=== PATIENT | female | born 1955 | race Caucasian/White ===

== ENCOUNTER 2019-07-06 15:33 | Inpatient (IN) | payer OTHER, SELFPAY ==
--- NOTE | ~2019-07-06 | XR_ITS ---
EXAMINATION: XR foot LT 2V DATE: 07/07/2019 15:31 INDICATION: Wound infection. Assess for osteomyelitis. TECHNIQUE: Dorsoplantar and lateral views of the left foot were obtained. COMPARISON: None. FINDINGS: Second-fifth claw toes. Alignment is otherwise normal. Diffuse osteopenia. No acute fracture. The fir st proximal phalanx appears shortened and angulated laterally but with intact cortical margins sugges ting either old healed fracture or osteotomy. Mild osteoarthritis at the subtalar, first metatarsopha langeal and several interphalangeal joints. No cortical erosions or periosteal reaction to suggest os teomyelitis. Small plantar calcaneal spur. Cystic change at the calcaneal insertion of the Achilles t endon. Diffuse soft tissue swelling about the left foot. No evident soft tissue gas. Dystrophic soft tissue calcifications at the posterior left calf. IMPRESSION: 1. No cortical erosion or periosteal reaction to suggest osteomyelitis. 2. 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 Reviewed, dictated and finalized at location A. IMPRESSION: 1. No cortical erosion or periosteal reaction to suggest osteomyelitis. 2. Mild polyarticular osteoarthritis at the subtalar joint and several joints i n the forefoot.
--- NOTE | ~2019-07-06 | XR_ITS ---
XR tibia fibula LT 2V 07/06/2019 16:36 INDICATION: Infection. Redness and swelling with wounds. PROCEDURE: 2 views left tibia/fibula COMPARISON: No prior studies for comparison. FINDINGS: Fracture, dislocation or subluxation is not identified. There is diffuse soft tissue swelli ng most prominent anteriorly. There are vascular calcifications. No foreign bodies are identified. IMPRESSION: 1: NO ACUTE BONE OR JOINT ABNORMALITY IDENTIFIED. Reviewed, dictated and finalized at location A.
[2019-07-06 15:36] VITALS: BP 150/79; PULSE 99; RESP 20; TEMP 36.8; O2SAT 100
--- NOTE | 2019-07-06 16:11 | ED.LOWEXIN ---
HPI - Extremity Injury (Lower) General Chief Complaint: Extremity Injury, Lower Stated Complaint: possible left leg infection Time Seen by Provider: 07/06/19 16:09 History of Present Illness HPI Narrative: Pain and swelling to the left leg for several days. She does not recal any injury. She reports that she has not been taking her medications, including metformin on schedule. She has a h/o poorly controled DM resulting in right AKA. No fever Related Data Home Medications Medication Instructions Recorded Confirmed aspirin 81 mg PO DAILY 07/06/19 carvedilol 6.25 mg PO BID 07/06/19 lisinopril-hydrochlorothiazide 1 tablet PO DAILY 07/06/19 metformin 1,000 mg PO BID 07/06/19 Allergies Allergy/AdvReac Type Severity Reaction Status Date / Time acetaminophen AdvReac Intermediate nausea and Verified 07/06/19 16:28 vomitting, abdominal pain oxycodone AdvReac Intermediate nausea and Verified 07/06/19 16:28 vomitting, abdominal pain erythromycin base AdvReac Unknown NAUSEA Verified 07/06/19 16:39 Review of Systems Review of Systems: All systems reviewed & are unremarkable except as noted in HPI and below Constitutional: Constitutional: Denies chills and Denies fever(s) Cardiovascular: Cardiovascular: Denies chest pain Respiratory: Respiratory: Denies dyspnea Gastrointestinal: Gastrointestinal: Denies nausea and Denies vomiting Genitourinary: Genitourinary: Denies dysuria Neurologic: Denies numbness and Denies weakness PMFSH Past Medical History Medical History (Updated 07/06/19 @ 19:17 by Davin Fitzpatrick MD) Diabetes mellitus HTN (hypertension) Unilateral complete AKA Social History Social History (Updated 07/06/19 @ 19:13 by Davin Fitzpatrick MD) Occupation/Education: unemployed Exam Const: General: no acute distress, alert and ill appearing Nutritional Appearance: well nourished Orientation/consciousness: patient oriented x3 HENMT: Head: normal to inspection Resp: Effort & Inspection: normal respiratory effort Auscultation: clear to auscultation bilaterally Cardio: Rate: regular rate Rhythm: regular rhythm Skin: Other: minor scattered abrasions on all extremities. Erythema, induration, and multiple ulcers to LLE. Neuro: General: patient oriented x3, no focal motor deficits and CN's II-XI intact bilaterally Speech: normal speech Extrem: Other: Right AKA. Swelling and tenderness to Left lower leg. Course Vital Signs Vital signs: Vital Signs Temperature 36.8 C 07/06/19 15:36 Pulse Rate 99 07/06/19 15:36 Respiratory Rate 20 07/06/19 15:36 Blood Pressure 150/79 H 07/06/19 15:36 Pulse Oximetry 100 07/06/19 15:36 Temperature 36.8 C 07/06/19 15:36 Pulse Rate 93 07/06/19 19:03 Respiratory Rate 18 07/06/19 19:03 Blood Pressure 162/73 H 07/06/19 19:03 Pulse Oximetry 100 07/06/19 19:03 MDM - Extremity Injury (Lower) MDM Narrative Medical decision making narrative: cellulitis versus osteomylitis. She will require admission for IV antibiotics and glucose control. Medical Records Attestation: I reviewed the patient's medical records. Lab Data Attestation: I reviewed the patient's lab results. Result diagrams: 07/06/19 16:12 07/06/19 16:12 Labs: Lab Results 07/06/19 07/06/19 07/06/19 Range/Units 16:12 16:12 16:12 WBC 10.5 H (4.5-10.0) K/mm3 RBC 3.79 L (4.2-5.4) M/mm3 Hgb 11.2 L (12.0-15.0) g/dL Hct 35.3 L (37.0-47.0) % MCV 93.1 (80-100) fl MCH 29.6 (26-34) pg MCHC 31.7 L (32-36) g/dl RDW 13.2 (11.5-14.5) % Plt Count 400 H (150-375) k/mm3 MPV 9.8 (7.4-10.4) fl Immature Gran % (Auto) 0.6 H (0-0.5) % Neut % (Auto) 66.8 (45.5-73.1) % Lymph % (Auto) 20.9 (18.3-44.2) % [place] % (Auto) 8.6 H (2.6-8.5) % Eos % (Auto) 2.2 (0-4.4) % Baso % (Auto) 0.9 (0.2-1.2) % Lymph # (Auto) 2.19 (0.9-3.2) K/mm3
[2019-07-06 16:29] LABS: Basophils Absolute Auto 0.1 K/mm3 (0.0-0.1); Basophils Percent Auto 0.9 % (0.2-1.2); Eosinophils Absolute Auto 0.2 K/mm3 (0-0.3); Eosinophils Percent Auto 2.2 % (0-4.4); Hematocrit 35.3 % (37.0-47.0); Hemoglobin 11.2 g/dL (12.0-15.0); Immature Granulocyte Absolute 0.06 K/mm3 (0.00-0.031); Immature Granulocyte Percent A 0.6 % (0-0.5); Lymphocytes Absolute Auto 2.19 K/mm3 (0.9-3.2); Lymphocytes Percent Auto 20.9 % (18.3-44.2); Mean Corpuscular HGB Conc 31.7 g/dl (32-36); Mean Corpuscular Hemoglobin 29.6 pg (26-34); Mean Corpuscular Volume 93.1 fl (80-100); Mean Platelet Volume 9.8 fl (7.4-10.4); Monocytes Absolute Auto 0.9 K/mm3 (0.1-0.6); Monocytes Percent Auto 8.6 % (2.6-8.5); Neutrophils Percent Auto 66.8 % (45.5-73.1); Platelet Count Result 400 k/mm3 (150-375); Red Blood Count 3.79 M/mm3 (4.2-5.4); Red Cell Distribution Width 13.2 % (11.5-14.5); White Blood Count 10.5 K/mm3 (4.5-10.0)
[2019-07-06 16:42] LABS: Lactic Acid Reflex 2.2 mmol/L (0.7-2.1)
[2019-07-06 16:44] LABS: Alanine Aminotransferase 13 U/L (4-35); Albumin Level 2.8 g/dL (3.5-5.1); Alkaline Phosphatase 113 U/L (38-126); Aspartate Amino Transferase 20 U/L (14-36); Bilirubin,Total 0.2 mg/dL (0.2-1.3); Blood Urea Nitrogen 20 mg/dL (7-17); CRP 5.7 mg/dL (<1.0); Calcium 8.1 mg/dL (8.4-10.2); Carbon Dioxide 27 mmol/L (22-30); Chloride 104 mmol/L (98-107); Estimated CRCL calculation 85 ml/min; Estimated Glomerular Filt Rate > 60; Glucose 239 mg/dL (65-105); Potassium 4.8 mmol/L (3.4-5.0); Sodium 133 mmol/L (137-145)
[2019-07-06 17:07] LABS: Erythrocyte Sedimentation Rate > 140 mm/hr (0-20)
[2019-07-06 18:51] LABS: Add Urine Microscopic? YES; Appearance Urine Clear (Clear); Bilirubin Urine Negative (Negative); Blood Urine Negative (Negative); Color Urine Straw (Yellow); Glucose Urine UA 2+ mg/dL (Negative); Ketones Urine Negative (Negative); Leukocyte Esterase Ur Negative LEU/UL (Negative); Nitrate Urine Negative (Negative); Protein Urine 3+ mg/dL (Negative); Specific Grav Ur 1.013 (1.001-1.035); Urobilinogen Urine Negative mg/dL (<2.0); WBC Urine 0-3 /hpf
[2019-07-06 19:03] VITALS: BP 162/73; PULSE 93; RESP 18; O2SAT 100
[2019-07-06 19:16] LABS: Glucose Point of Care 231 (65-105)
[2019-07-06 19:27] LABS: Reflex Lactic Acid Yes or No Add Lactic
[2019-07-06 19:39] VITALS: BP 159/81; PULSE 94; RESP 18; O2SAT 99
[2019-07-06 20:35] LABS: Lactic Acid 1.7 mmol/L (0.7-2.1)
[2019-07-06 20:54] VITALS: BP 156/67; PULSE 91; RESP 20; TEMP 36.1; O2SAT 100
[2019-07-06 20:55] VITALS: BMI 34.2
--- NOTE | 2019-07-06 21:00 | PM.IMHP ---
H&P: HPI History of Present Illness Chief complaint: Left leg wounds. Narrative: Rochelle Sears is a 63-year-old female with type 2 diabetes mellitus and hypertension who presented to the emergency department earlier today from home for evaluation of left leg wounds. I am not certain how forthcoming she has with regards to her medical history but from what I can gather she obtained a small wound on her left barry after losing her balance while transferring from her stair lift to her wheelchair a couple of weeks ago. She was unable to get herself back up, and spent approximately 2 days on the floor. Her niece attempted to get a hold of her, and when she did not answer the police department was sent over for a welfare check. The fire department then came for lift assist. Since that time, her nephews have been checking up on her, and they noticed the wounds on her left leg and told her that they would call daily in tell she came to the ER for evaluation. She has multiple, shallow ulcerations on the left anterior barry, left heel, and left lateral malleolus and she cannot tell me when they occurred and really was unaware of some of them. She does have a CT but has not had any cat bites or cat scratches. Due to neuropathy she does not have much pain in that left leg. She denies fever, chills, and sweats. No recent cold or flu symptoms. No history of MRSA or Pseudomonas. Review of Systems Review of Systems: Narrative: Twelve systems were reviewed with pertinent positives and negatives as per HPI. No fever, chills, or sweats. She denies cold and flu symptoms. She has a chronic nagging cough which she attributes to lisinopril. It is nonproductive. She reports being mildly short of breath several days ago when she was transferring herself from the car to her wheelchair in order to pump gas, but that passed quickly and she has not had any incidence since that time. She denies chest pain and pleuritic pain. No racing heart or palpitations. No history of venous thromboembolism. She does have retinopathy with a history of injections and also notes peripheral neuropathy in the left lower extremity; she is status post right [id number] amputation. No nephropathy. She admits that her diabetes is probably not under great control as her random glucoses are usually in the low 200s. She denies blurry vision, polydipsia, and polyuria. No nausea or vomiting. Intermittent constipation and diarrhea. She reports malodorous urine and urinary frequency, but no dysuria. Except as documented, all other systems were reviewed and are negative. [facility] Past Medical History Medical History (Updated 07/06/19 @ 23:13 by Flor Chacon PA-C) Colon cancer (~1999) Treated with colon resection, chemotherapy, and radiation. Essential hypertension History of right above knee amputation (~2014) Done at [facility]. Patient apparently had an infection in that limb after sustaining a wound from stepping on coral. Type 2 diabetes mellitus Surgical History Surgical History (Updated 07/06/19 @ 23:06 by Flor Chacon PA-C) History of colon resection (~1999) For colon cancer at age 43. Status post tendon reattachment Right hip. Family History Family History Sibling History of blood clots Diabetes mellitus Acute myocardial infarction Cerebrovascular accident Asthma Hypertension Father Cerebrovascular accident Other Colon cancer Social History Social History (Updated 07/06/19 @ 23:07 by Flor Chacon PA-C) Social History: The patient lives in her own townhouse in [place]. She was recently laid off from her job. She is not and has no children. Lifelong nonsmoker. No alcohol or drug abuse, however she did drink heavily when she was younger. She designates her sister, Natacha Quinn, as her surrogate decision maker and she wishes to be a full code. Kirti
[2019-07-06 23:54] LABS: Prealbumin 12.5 mg/dL (17.6-36.0)
[2019-07-06 23:56] LABS: Glucose Point of Care 205 (65-105)
[2019-07-07 00:53] VITALS: PULSE 80
[2019-07-07] MEDS: carvediloL 6.25 MG TABLET PO ×3 (00:53→20:38)
[2019-07-07 05:20] LABS: Basophils Absolute Auto 0.1 K/mm3 (0.0-0.1); Basophils Percent Auto 0.5 % (0.2-1.2); Eosinophils Absolute Auto 0.2 K/mm3 (0-0.3); Eosinophils Percent Auto 2.1 % (0-4.4); Hemoglobin 9.8 g/dL (12.0-15.0); Immature Granulocyte Absolute 0.07 K/mm3 (0.00-0.031); Immature Granulocyte Percent A 0.7 % (0-0.5); Lymphocytes Absolute Auto 1.85 K/mm3 (0.9-3.2); Mean Corpuscular HGB Conc 31.6 g/dl (32-36); Mean Corpuscular Hemoglobin 29.3 pg (26-34); Mean Corpuscular Volume 92.5 fl (80-100); Mean Platelet Volume 9.4 fl (7.4-10.4); Monocytes Absolute Auto 1.2 K/mm3 (0.1-0.6); Monocytes Percent Auto 11.2 % (2.6-8.5); Neutrophils Absolute Auto 6.9 K/mm3 (1.3-6.7); Neutrophils Percent Auto 67.5 % (45.5-73.1); Platelet Count Result 357 k/mm3 (150-375); Red Blood Count 3.35 M/mm3 (4.2-5.4); White Blood Count 10.3 K/mm3 (4.5-10.0)
[2019-07-07 05:36] LABS: Potassium 4.4 mmol/L (3.4-5.0)
[2019-07-07 05:38] LABS: Blood Urea Nitrogen 17 mg/dL (7-17); Calcium 8.1 mg/dL (8.4-10.2); Carbon Dioxide 29 mmol/L (22-30); Chloride 104 mmol/L (98-107); Estimated CRCL calculation 67 ml/min; Estimated Glomerular Filt Rate > 60; Glucose 187 mg/dL (65-105); Magnesium 1.7 mg/dL (1.6-2.3); Sodium 135 mmol/L (137-145)
[2019-07-07 05:57] VITALS: BP 134/64; PULSE 89; RESP 18; TEMP 36.5; O2SAT 98
[2019-07-07 07:53] LABS: Glucose Point of Care 262 (65-105)
[2019-07-07] MEDS: INSULIN ASPART (*BKC) 100 UNITS/ML SUB-Q (08:40)
[2019-07-07 08:44] LABS: Glucose Point of Care 259 (65-105)
[2019-07-07] MEDS: metFORMIN HCL XR 500 MG TAB.SR.24H 1000 MG PO ×2 (08:45→16:33)
[2019-07-07] MEDS: hydroCHLOROthiazide 12.5 MG CAPSULE PO (08:45)
[2019-07-07] MEDS: ASPIRIN 81 MG ENTERIC TABLET PO (08:45)
[2019-07-07 08:46] VITALS: PULSE 70
[2019-07-07] MEDS: lisinopriL 20 MG TABLET PO (08:46)
[2019-07-07 11:47] LABS: Glucose Point of Care 142 (65-105)
[2019-07-07 13:49] VITALS: BP 126/58; PULSE 98; RESP 18; TEMP 36.8; O2SAT 100
--- NOTE | 2019-07-07 14:46 | PM.IMPN ---
Progress Note: A&P Assessment and Plan (1) Left leg cellulitis: Code(s): L03.116 - Cellulitis of left lower limb Status: Acute Assessment and Plan: She has been started on imipenem and vancomycin per antibiotic stewardship recommendations. There has been some improvement of the cellulitis, still some erythema and warmth noted to anterior barry. ESR and CRP were both elevated on arrival. Will repeat them in the morning to see have it is improved with IV antibiotics for Will continue monitoring blood cultures, continue IV antibiotics, and wound nurses will evaluate the patient tomorrow. (2) Diabetic ulcer of lower leg: Code(s): E11.622 - Type 2 diabetes mellitus with other skin ulcer; L97.909 - Non-pressure chronic ulcer of unspecified part of unspecified lower leg with unspecified severity Status: Acute Assessment and Plan: The emergency department got an x-ray of her tibia/fibula where there are multiple ulcers noted but they did not get an x-ray of her left foot or heel where there is a diabetic ulcer noted. I will order an x-ray of her left foot to further evaluate the diabetic ulcers noted on the heel. Rule out osteomyelitis. Wound nurse consult appreciated. (3) Type 2 diabetes mellitus: Code(s): E11.9 - Type 2 diabetes mellitus without complications Status: Acute Assessment and Plan: Continue metformin Hemoglobin A1c was 11%. Patient states she sometimes misses her home medications of metformin and she does not check her glucose regularly. I will start her on Lantus 7 units at night and medium dose sliding scale. Will continue monitoring and get diabetes education and nutrition involved during her stay. Initiate sliding scale insulin, Accu-Cheks, and hypoglycemic protocol. (4) Essential hypertension: Code(s): I10 - Essential (primary) hypertension Status: Acute Assessment and Plan: Blood pressure was 134/64 this morning. Which is within normal range. Will continue antihypertensives and monitor daily; she may need adjustments in dosing. (5) Protein calorie malnutrition: Code(s): E46 - Unspecified protein-calorie malnutrition Status: Acute Assessment and Plan: It does not sound as though she really has a nutritious diet. Total protein and albumin are a bit low, thus will add protein supplements. 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 The swelling, redness has come down on her left leg after starting the antibiotics. She denies any fevers, chills, but does report feeling more tired and fatigued today. She denies any pain or discomfort to her left leg. She states sometimes she misses her diabetes medications and she does not check her glucose regularly. She does report some nausea and diarrhea which she believes is from the IV antibiotics. She denies any chest pain, shortness of breath, cough, vomiting, abdominal pain, or any other symptoms at this time. Review of Systems Review of Systems: All systems reviewed & are unremarkable except as noted in HPI and below Exam Narrative: Exam Narrative: General: 63-year-old woman laying flat in bed on her right side taking a nap. Appears comfortable. In no acute distress. Skin: She has multiple skin tears to her left upper extremity and 1 skin tear to her right upper extremity, no acute bleeding at this time. See lower extremity. No jaundice or cyanosis. Good skin turgor. Nec
[2019-07-07] MEDS: ONDANSETRON INJ 4 MG/2 ML VIAL IV PUSH (15:17)
[2019-07-07 16:20] LABS: Glucose Point of Care 193 (65-105)
[2019-07-07] MEDS: SACCHAROMYCES BOULARDII 250 MG CAPSULE PO (16:56)
[2019-07-07 20:00] VITALS: PULSE 94; RESP 16; O2SAT 100
[2019-07-07] MEDS: INSULIN GLARGINE (*BKC) 100 UNITS/ML 7 UNITS SUB-Q (20:38)
[2019-07-07 21:05] LABS: Glucose Point of Care 177 (65-105)
[2019-07-07 21:16] VITALS: BP 147/71; PULSE 94; RESP 16; TEMP 36.1; O2SAT 100
[2019-07-08 05:58] VITALS: BP 152/76; PULSE 88; RESP 18; TEMP 36.2; O2SAT 100
[2019-07-08 06:28] LABS: CRP 4.8 mg/dL (<1.0)
[2019-07-08 07:08] LABS: Vancomycin Trough 17.9 ug/mL (10.0-20.0)
[2019-07-08 07:31] LABS: Erythrocyte Sedimentation Rate > 140 mm/hr (0-20)
[2019-07-08 08:05] VITALS: PULSE 88
[2019-07-08] MEDS: metFORMIN HCL XR 500 MG TAB.SR.24H 1000 MG PO ×2 (08:05→17:17)
[2019-07-08] MEDS: ASPIRIN 81 MG ENTERIC TABLET PO (08:05)
[2019-07-08] MEDS: carvediloL 6.25 MG TABLET PO ×2 (08:05→20:22)
[2019-07-08] MEDS: lisinopriL 20 MG TABLET PO (08:06)
[2019-07-08] MEDS: SACCHAROMYCES BOULARDII 250 MG CAPSULE PO ×2 (08:06→17:16)
[2019-07-08] MEDS: hydroCHLOROthiazide 12.5 MG CAPSULE PO (08:06)
[2019-07-08 08:38] LABS: Glucose Point of Care 150 (65-105)
[2019-07-08 08:50] LABS: Basophils Absolute Auto 0.1 K/mm3 (0.0-0.1); Basophils Percent Auto 0.7 % (0.2-1.2); Eosinophils Absolute Auto 0.2 K/mm3 (0-0.3); Eosinophils Percent Auto 2.4 % (0-4.4); Hemoglobin 9.8 g/dL (12.0-15.0); Immature Granulocyte Absolute 0.04 K/mm3 (0.00-0.031); Immature Granulocyte Percent A 0.5 % (0-0.5); Lymphocytes Absolute Auto 1.73 K/mm3 (0.9-3.2); Lymphocytes Percent Auto 20.4 % (18.3-44.2); Mean Corpuscular HGB Conc 31.6 g/dl (32-36); Mean Corpuscular Hemoglobin 29.5 pg (26-34); Mean Corpuscular Volume 93.4 fl (80-100); Mean Platelet Volume 10.1 fl (7.4-10.4); Monocytes Absolute Auto 0.8 K/mm3 (0.1-0.6); Monocytes Percent Auto 9.8 % (2.6-8.5); Neutrophils Absolute Auto 5.6 K/mm3 (1.3-6.7); Neutrophils Percent Auto 66.2 % (45.5-73.1); Platelet Count Result 370 k/mm3 (150-375); Red Blood Count 3.32 M/mm3 (4.2-5.4); Red Cell Distribution Width 13.1 % (11.5-14.5); White Blood Count 8.5 K/mm3 (4.5-10.0)
[2019-07-08 08:54] LABS: Blood Urea Nitrogen 21 mg/dL (7-17); Calcium 7.8 mg/dL (8.4-10.2); Carbon Dioxide 28 mmol/L (22-30); Chloride 102 mmol/L (98-107); Estimated CRCL calculation 67 ml/min; Estimated Glomerular Filt Rate > 60; Glucose 154 mg/dL (65-105); Magnesium 1.6 mg/dL (1.6-2.3); Potassium 4.3 mmol/L (3.4-5.0); Sodium 133 mmol/L (137-145)
--- NOTE | 2019-07-08 09:23 | PM.IMPN ---
Progress Note: A&P Assessment and Plan (1) Left leg cellulitis: Code(s): L03.116 - Cellulitis of left lower limb Status: Acute Assessment and Plan: She has been started on imipenem and vancomycin per antibiotic stewardship recommendations. There has been some improvement of the cellulitis, still some erythema and warmth noted to anterior barry. ESR and CRP were both elevated on arrival. Repeat ESR is still greater than 140 and repeat CRP has slightly come down to 4.8. Wound care is coming to evaluate the patient today and we need to make plans to continue monitoring her healing and follow-up with them in wound clinic if possible. Will continue monitoring blood cultures, continue IV antibiotics. (2) Diabetic ulcer of lower leg: Code(s): E11.622 - Type 2 diabetes mellitus with other skin ulcer; L97.909 - Non-pressure chronic ulcer of unspecified part of unspecified lower leg with unspecified severity Status: Acute Assessment and Plan: The emergency department got an x-ray of her tibia/fibula where there are multiple ulcers noted but they did not get an x-ray of her left foot or heel where there is a diabetic ulcer noted. X-ray of her left foot shows no acute osteomyelitis. Wound nurse consult appreciated. (3) Type 2 diabetes mellitus: Code(s): E11.9 - Type 2 diabetes mellitus without complications Status: Acute Assessment and Plan: Continue metformin Hemoglobin A1c was 11%. Patient states she sometimes misses her home medications of metformin and she does not check her glucose regularly. Continue on Lantus 7 units at night and medium dose sliding scale. Her serum glucose this morning was 154 which is better. Will continue monitoring and get diabetes education and nutrition involved during her stay. Initiate sliding scale insulin, Accu-Cheks, and hypoglycemic protocol. (4) Essential hypertension: Code(s): I10 - Essential (primary) hypertension Status: Acute Assessment and Plan: Blood pressure was 152/72 this morning. Which is within normal range. Will continue antihypertensives and monitor daily; she may need adjustments in dosing. (5) Protein calorie malnutrition: Code(s): E46 - Unspecified protein-calorie malnutrition Status: Acute Assessment and Plan: It does not sound as though she really has a nutritious diet. Total protein and albumin are a bit low, thus will add protein supplements. 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 The swelling, redness has come down on her left leg after starting the antibiotics. She denies any fevers, chills. She denies any pain or discomfort to her left leg. She states sometimes she misses her diabetes medications and she does not check her glucose regularly. She had some more nausea this morning as well as a small episode of vomiting bile after she tried taking some of her medications on an empty stomach. She denies any chest pain, shortness of breath, cough, abdominal pain, or any other symptoms at this time. Review of Systems Review of Systems: All systems reviewed & are unremarkable except as noted in HPI and below Exam Narrative: Exam Narrative: General: 63-year-old woman sitting up in her wheelchair on the phone with her family. Appears comfortable. In no acute distress. Skin: She has multiple skin tears to her left upper extremity and 1 sk
[2019-07-08 10:49] VITALS: BMI 34.2
[2019-07-08 11:47] LABS: Glucose Point of Care 243 (65-105)
[2019-07-08] MEDS: INSULIN ASPART (*BKC) 100 UNITS/ML SUB-Q (11:57)
[2019-07-08 14:00] VITALS: BP 114/56; PULSE 86; RESP 18; TEMP 36.4; O2SAT 100
[2019-07-08 16:00] VITALS: BMI 34.2
[2019-07-08 16:47] LABS: Glucose Point of Care 170 (65-105)
[2019-07-08] MEDS: SILVERGEL (ELTA) 45 ML 1 APPLIC TOPICAL (17:16)
[2019-07-08 20:00] VITALS: PULSE 78; RESP 18; O2SAT 100
[2019-07-08 20:22] VITALS: PULSE 78
[2019-07-08] MEDS: INSULIN GLARGINE (*BKC) 100 UNITS/ML 7 UNITS SUB-Q (20:40)
[2019-07-08 21:20] LABS: Glucose Point of Care 239 (65-105)
[2019-07-08 22:00] VITALS: BP 146/62; PULSE 88; RESP 21; TEMP 36.4; O2SAT 100
[2019-07-09] MEDS: CALCIUM CARBONATE (TUMS) 500 MG (200 MG ELEMENTAL) PO (05:02)
[2019-07-09 05:23] LABS: Hematocrit 31.1 % (37.0-47.0); Hemoglobin 9.9 g/dL (12.0-15.0); Mean Corpuscular HGB Conc 31.8 g/dl (32-36); Mean Corpuscular Hemoglobin 29.4 pg (26-34); Mean Corpuscular Volume 92.3 fl (80-100); Mean Platelet Volume 9.9 fl (7.4-10.4); Platelet Count Result 377 k/mm3 (150-375); Red Blood Count 3.37 M/mm3 (4.2-5.4); Red Cell Distribution Width 13.1 % (11.5-14.5); White Blood Count 9.7 K/mm3 (4.5-10.0)
[2019-07-09] MEDS: ONDANSETRON INJ 4 MG/2 ML VIAL IV PUSH (05:30)
[2019-07-09 05:55] LABS: Blood Urea Nitrogen 23 mg/dL (7-17); CRP 3.5 mg/dL (<1.0); Calcium 8.1 mg/dL (8.4-10.2); Carbon Dioxide 28 mmol/L (22-30); Chloride 102 mmol/L (98-107); Estimated CRCL calculation 67 ml/min; Estimated Glomerular Filt Rate > 60; Glucose 124 mg/dL (65-105); Magnesium 1.7 mg/dL (1.6-2.3); Potassium 4.1 mmol/L (3.4-5.0); Sodium 132 mmol/L (137-145)
[2019-07-09 06:00] VITALS: BP 137/74; PULSE 92; RESP 18; TEMP 36.7; O2SAT 96
[2019-07-09 08:10] LABS: Glucose Point of Care 172 (65-105)
[2019-07-09 08:54] VITALS: PULSE 95
[2019-07-09] MEDS: carvediloL 6.25 MG TABLET PO (08:54)
[2019-07-09] MEDS: hydroCHLOROthiazide 12.5 MG CAPSULE PO (08:54)
[2019-07-09] MEDS: lisinopriL 20 MG TABLET PO (08:55)
[2019-07-09] MEDS: ENOXAPARIN 40 MG/0.4 ML SYRINGE SUB-Q (08:55)
[2019-07-09] MEDS: SILVERGEL (ELTA) 45 ML 1 APPLIC TOPICAL (08:59)
[2019-07-09 11:28] LABS: Glucose Point of Care 190 (65-105)
[2019-07-09 14:00] VITALS: BP 134/53; PULSE 90; RESP 16; TEMP 36.2; O2SAT 100
--- NOTE | 2019-07-09 15:07 | PM.DS ---
DS: Admitting Diagnosis Admitting Diagnosis Admitting Diagnosis: Cellulitis of left lower limb DS: Discharge Diagnosis Discharge Diagnosis (1) Left leg cellulitis: Code(s): L03.116 - Cellulitis of left lower limb Status: Acute Assessment and Plan: She had been started on imipenem and vancomycin per antibiotic stewardship recommendations. Appears to have marked improvement in left lower leg erythema. WC consulted and appreciate recommendations - likely chronic venous stasis. May have had initial cellulitis with marked improvement. CRP down to 3.5. Leukocytosis resolved at 9.7k today. VSS, afebrile. BCx negative to date x 2 Will do Clindamycin to complete 7 day course total of antibiotics given mild leukocytosis, elevate ESR and CRP upon admission F/u with PCP (2) Diabetic ulcer of lower leg: Code(s): E11.622 - Type 2 diabetes mellitus with other skin ulcer; L97.909 - Non-pressure chronic ulcer of unspecified part of unspecified lower leg with unspecified severity Status: Acute Assessment and Plan: Imaging unremarkable for acute osteomyelitis. Wound nurse consult appreciated. F/u with PCP (3) Type 2 diabetes mellitus: Code(s): E11.9 - Type 2 diabetes mellitus without complications Status: Acute Assessment and Plan: A1c 11.0. Patient admits missing her home medications occasionally. Diabetic diet and compliance with her metformin were highly recommended upon discharge. BGL 120s-190s today Will have her follow up with perioperative educator as an outpatient F/u with PCP Continue metformin I am reluctant to initiating insulin regimen given her already poor compliance with her metformin. It was stressed to her that she should discuss with her PCP if she should start taking insulin. Accuchecks ACHS, hypoglycemia protocol, correctional insulin, diabetic diet during stay as well as long acting insulin (4) Essential hypertension: Code(s): I10 - Essential (primary) hypertension Status: Acute Assessment and Plan: Blood pressure was 130s sys this morning. Will continue antihypertensives F/u with PCP (5) Protein calorie malnutrition: Code(s): E46 - Unspecified protein-calorie malnutrition Status: Acute Assessment and Plan: It does not sound as though she really has a nutritious diet. Total protein and albumin are a bit low, thus will add protein supplements. Pre-albumin was low at 12.5. [employer] consulted DS: Summary Hospital Course Reason for hospitalization: LLE cellulitis/diabetic ulcers of left lower leg Hospital Course: Patient is a 63 yo F with history of type 2 diabetes mellitus and hypertension who presented to the emergency department on 07/05 from home for evaluation of left leg wounds. While in the ER, she was evaluated and felt to have ulcers to the left anterior barry with surrounding cellulitis. Patient admitted under this setting. Please see H&P for further details. Presenting VS: Temp Pulse Resp BP Pulse Ox 98.3 F 99 20 150/79 H 100 07/06/19 15:36 07/06/19 15:36 07/06/19 15:36 07/06/19 15:36 07/06/19 15:36 Presenting Pertinent labs: WBC 10.5k, H&H 11.2/35.3, MCV 93.1, L.A. 2.2 (then 1.7), CRP 5.7, Hgb A1c 11.0. CBC, chemistry, UA otherwise unremarkable Micro: BCx negative to date x2 Imaging: Tibia/Fibula X-Ray 07/06/19 16:40 IMPRESSION: 1: NO ACUTE BONE OR JOINT ABNORMALITY IDENTIFIED. Foot X-Ray 07/07/19 15:37 IMPRESSION: 1. No cortical erosion or periosteal reaction to suggest osteomyelitis. 2. 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 ECG: none Patient was admitted to the hospitalist service for
--- NOTE | 2019-07-10 09:38 | PCCDE ---
Attempted to call pt for diabetes f/up but had to leave voice mail.
== END 2019-07-09 17:09 | disposition home or self-care (01) | DRG 638 ==
LOC: ANHED 19:17 → ANH2MED 23:02
PROVIDERS: Physician Assistant; Admitting Provider Family Medicine; Emergency Provider Emergency Medicine; PCP Family Medicine Sports Medicine; Visit Provider Physician Assistant
DX: E11.628 Type 2 diabetes mellitus with other skin complications (principal); L03.116 Cellulitis of left lower limb; L97.829 Non-pressure chronic ulcer of other part of left lower leg with unspecified severity; E46 Unspecified protein-calorie malnutrition; E11.622 Type 2 diabetes mellitus with other skin ulcer; E11.42 Type 2 diabetes mellitus with diabetic polyneuropathy; I10 Essential (primary) hypertension; Z89.611 Acquired absence of right leg above knee; Z85.038 Personal history of other malignant neoplasm of large intestine
CPT/HCPCS: 36415; 51701; 73590; 73620; 80048; 80053; 80202; 81001; 82948; 83036; 83605; 83735; 84134; 85025; 85027; 85652; 86140; 87040; 96365; 96366; 96367; 96375; 96376; 97161; 97165; 99285; A9270; G0378; J0743; J1650; J1815; J2405; J3370